=== PATIENT | male | born 1970 | race Caucasian/White ===

== ENCOUNTER 2019-03-08 00:36 | Emergency (ER) | payer OTHER ==
[~2019-03-08] VITALS: Ht 175.3 cm; Wt 117.9 kg
[~2019-03-08 00:36] MED LIST: ALBUTEROL NEB; ALBUTEROL2.5 MG/0.1 INH; ALBUTEROL2.5 MG/3 M IH; ALBUTEROL2.5 MG/31 IH; ALTERA NEBULIZ1 EACH MC; CYCLOBENZAPRINE; DUONEB 2.5-0.5 M3 ML IH; HYDROCODON-ACE1 EAC1; IBUPROFEN 800800 M1; KEFLEX500 MG PO; MEDROLDOSEPACK PO; NORCO 5-325 TA1 EACH PO; OMEPRAZOLE 20 M20 MG PO; PENICILLIN V P500 MG PO; PENICILLIN VK500 MG PO; PERCOCET 5-3251 EACH; PERCOCET 5-3251 EACH PO; PHENERGAN 25 MG25 M1 PO; PHENERGAN-CODE120 ML PO; POTASSIUM20 OR; PREDNISONE 10 M10 M1 PO; PREDNISONE 20 M20 M1 PO; PREDNISONE 20 M20 MG PO; PREDNISONE50 MG PO; PROAIR HFA8.5 GM IH; PROVENTIL HFA6.7 G1 INH; QVAR HFA 880 MCG/UN1 INH; SYMBICORT80 MCG/4.1 INH; VENLAFAXINE HCL50 MG PO; VENTOLIN HFA INH8 GM IH; VENTOLIN17 GM INH; XYZAL5 MG PO; ZPAK PO
[2019-03-08] MEDS ORDERED: BLOOD PRESSURE MED (00:47)
[2019-03-08] MEDS ORDERED: VENTOLIN HFA 1818 GM INH (01:07)
[2019-03-08 01:25] VITALS: BP 155/86
== END 2019-03-08 01:29 | disposition home or self-care (01) ==
LOC: M.ERS 00:36
DX: J45.901 Unspecified asthma with (acute) exacerbation (principal); F17.210 Nicotine dependence, cigarettes, uncomplicated

== ENCOUNTER 2019-03-10 21:44 | Emergency (ER) | payer OTHER ==
[~2019-03-10] VITALS: Ht 175.3 cm; Wt 117.9 kg
[~2019-03-10 21:44] MED LIST changes: +BLOOD PRESSURE MED; +VENTOLIN HFA 1818 GM INH
[2019-03-10] MEDS ORDERED: PROAIR HFA8.5 GM INH (22:34)
[2019-03-10] MEDS ORDERED: IPRAT-ALBUT 0.5-3 ML INH (22:34)
[2019-03-10 22:43] VITALS: BP 144/74
== END 2019-03-10 22:43 | disposition home or self-care (01) ==
LOC: M.ERS 21:44
DX: J98.01 Acute bronchospasm (principal); F17.210 Nicotine dependence, cigarettes, uncomplicated

== ENCOUNTER 2019-03-26 12:28 | Emergency (ER) | payer OTHER ==
[~2019-03-26] VITALS: Ht 175.3 cm; Wt 117.9 kg
[~2019-03-26 12:28] MED LIST changes: +IPRAT-ALBUT 0.5-3 ML INH; +PROAIR HFA8.5 GM INH
[2019-03-26 12:37] VITALS: BP 125/82
[2019-03-26] MEDS ORDERED: ANXIETY MED (12:43)
[2019-03-26] MEDS ORDERED: ZANTAC 150MG T150 M1 PO (12:43)
[2019-03-26] MEDS ORDERED: MEDROLDOSEPACK PO (13:37)
[2019-03-26] MEDS ORDERED: AUGMENTIN 875-1 EACH PO (13:37)
[2019-03-26 13:41] LABS: INFLUENZA A ANTIGEN Negative (Negative); INFLUENZA B ANTIGEN Negative (Negative)
== END 2019-03-26 13:59 | disposition home or self-care (01) ==
LOC: M.ERS 12:28
PROVIDERS: Nurse Practitioner Family
DX: K12.2 Cellulitis and abscess of mouth (principal); J45.909 Unspecified asthma, uncomplicated; F17.210 Nicotine dependence, cigarettes, uncomplicated

== ENCOUNTER 2019-05-20 22:37 | Emergency (ER) | payer OTHER ==
[~2019-05-20] VITALS: Ht 172.7 cm; Wt 136.1 kg
[~2019-05-20 22:37] MED LIST changes: +ANXIETY MED; +AUGMENTIN 875-1 EACH PO; +ZANTAC 150MG T150 M1 PO
[2019-05-20] MEDS ORDERED: PREDNISONE 20 M20 M1 PO (23:15)
[2019-05-20 23:34] VITALS: BP 121/70
== END 2019-05-20 23:35 | disposition home or self-care (01) ==
LOC: M.ERS 22:37
DX: J45.909 Unspecified asthma, uncomplicated (principal); F41.9 Anxiety disorder, unspecified; F32.9 Major depressive disorder, single episode, unspecified; F17.210 Nicotine dependence, cigarettes, uncomplicated

== ENCOUNTER 2019-05-24 07:30 | Emergency (ER) | payer OTHER ==
[~2019-05-24] VITALS: Ht 172.7 cm; Wt 136.1 kg
[2019-05-24] MEDS ORDERED: ALBUTEROL2.5 MG/0.1 INH (08:40)
[2019-05-24] MEDS ORDERED: VENTOLIN HFA 1818 GM INH (08:40)
[2019-05-24 08:50] VITALS: BP 134/67
== END 2019-05-24 08:50 | disposition home or self-care (01) ==
LOC: M.ERS 07:30
DX: J45.901 Unspecified asthma with (acute) exacerbation (principal); F17.210 Nicotine dependence, cigarettes, uncomplicated

== ENCOUNTER 2019-08-10 03:53 | Emergency (ER) | payer OTHER ==
[~2019-08-10] VITALS: Ht 172.7 cm; Wt 117.9 kg
[2019-08-10 04:05] VITALS: BP 143/86
[2019-08-10] MEDS ORDERED: XANAX2 MG PO (04:25)
== END 2019-08-10 04:49 | disposition left against medical advice (07) ==
LOC: M.ERS 03:53
DX: Z53.21 Procedure and treatment not carried out due to patient leaving prior to being seen by health care provider (principal)

== ENCOUNTER 2020-03-01 00:42 | Emergency (ER) | payer OTHER ==
[~2020-03-01] VITALS: Ht 172.7 cm; Wt 136.1 kg
[~2020-03-01 00:42] MED LIST changes: +XANAX2 MG PO
[2020-03-01 00:52] VITALS: BP 152/97
[2020-03-01] MEDS ORDERED: LOMAIRA8 MG PO (00:53)
== END 2020-03-01 00:56 | disposition left against medical advice (07) ==
LOC: M.ERS 00:42
DX: Z53.21 Procedure and treatment not carried out due to patient leaving prior to being seen by health care provider (principal)